=== PATIENT | male | born 1975 | race American Indian/Alaskan Native ===

== ENCOUNTER 2018-08-01 13:35 | Emergency (ER) | payer SELFPAY ==
[2018-08-01] MEDS ORDERED: CATAPRES PO ONE (13:54)
[2018-08-01] MEDS ORDERED: MOTRIN PO ONE (13:54)
--- NOTE | 2018-08-01 13:56 | Emergency Department Report ---
Blank Doc - Documentation Documentation: She was a 43-year-old male whose presenting with left-sided headaches for partly 2 weeks. Patient states this is off and on and he's been taking Excedrin which sometimes helps but is becoming less effective. Patient denies any neck stiffness fevers chills nausea vomiting or light sensitivity. Patient is blood pressure was elevated here in the emergency department but he does not have a history of high blood pressure. Patient also mentioned that today he had an episode where his arms and neck felt tight as though he was having muscle spasms and he was having difficulty moving for approximately a minute. Patient states this was painful thing it wasn't that his body just 1-lead. Patient states he felt as though his muscles were dorian. Patient will have electrolytes drawn including a magnesium. Patient was given 0.2 Catapres for his elevated blood pressure and Motrin for his headache. Patient be reassessed after laboratory studies are reviewed
[2018-08-01 14:44] LABS: BUN/Creatinine Ratio 9; Blood Urea Nitrogen 12 mg/dL (9-20); Calcium 9.9 mg/dL (8.4-10.2); Hemolysis Index 11
--- NOTE | 2018-08-01 15:27 | Emergency Department Report ---
HPI - General Chief Complaint: Headache Time Seen by Provider: 08/01/18 13:51 - HPI HPI: This is a 43-year-old male that was initially screened by Dr. Gonzalez presents to the ED complaining with left-sided headaches for partly 2 weeks. Patient states this is off and on and he's been taking Excedrin which sometimes helps but is becoming less effective. Patient denies any neck stiffness fevers chills nausea vomiting or light sensitivity. Patient is blood pressure was elevated here in the emergency department but he does not have a history of high blood pressure. Patient also mentioned that today he had an episode where his arms and neck felt tight as though he was having muscle spasms and he was having difficulty moving for approximately a minute. Patient states this was painful thing it wasn't that his body just 1-lead. Patient states he felt as though his muscles were dorian. He denies fevers/chills/trauma/any recent injury/loss of sensation/visual disturbances/dizziness or shortness of breath ED Past Medical Hx - Past Medical History Previous Medical History?: No - Surgical History Past Surgical History?: No - Social History Smoking Status: Never Smoker Substance Use Type: None - Medications Home Medications: Home Medications Medication Instructions Recorded Confirmed Last Taken Type Cyclobenzaprine [Flexeril] 10 mg PO QHS PRN #20 tablet 08/01/18 Unknown Rx Ibuprofen [Motrin] 800 mg PO Q8HR #40 tablet 08/01/18 Unknown Rx ED Review of Systems ROS: Stated complaint: HEADACHES Other details as noted in HPI Constitutional: denies: chills, fever Eyes: denies: eye pain, eye discharge, vision change ENT: denies: ear pain, throat pain Respiratory: denies: cough, shortness of breath, wheezing Cardiovascular: denies: chest pain, palpitations Endocrine: no symptoms reported Gastrointestinal: denies: abdominal pain, nausea, vomiting, diarrhea Genitourinary: denies: urgency, dysuria Musculoskeletal: denies: back pain, joint swelling, arthralgia Skin: denies: rash, lesions Neurological: headache. denies: weakness, paresthesias Physical Exam - Physical Exam Vital Signs: Vital Signs 08/01/18 08/01/18 13:39 14:16 Pulse Rate 79 72 Respiratory 16 13 Rate Blood Pressure 156/104 138/90 O2 Sat by Pulse 99 Oximetry Physical Exam: GENERAL: Alert and oriented x3, no apparent distress, Normal Gait, atraumatic. HEAD: Head is normocephalic and a-traumatic. NECK: Supple. Non edematous, No carotid bruits. No lymphadenopathy or thyromegaly. No C-spine tenderness LUNGS: Symetrical with respiration, No wheezing, no rales or crackles, CTAB. HEART: S1, S2 present, regular rate and rhythm without murmur, no rubs, no gallops. Non tender to palpation . EXTREMITIES/MUSCULOSKELETAL: No cyanosis, clubbing, rash, lesions or edema. Full ROM bilaterally. UE/LE Pulses 2+ bilaterally. LE and UE 5+ strength bilaterally, straight leg raise negative bilaterally NEUROLOGIC: The patient is cooperative with no focal neurologic deficits. Cranial nerves II through XII are grossly intact. Normal speech. . SKIN: Warm and dry, No lesions, No ulceration or induration present. ED Course Vital Signs 08/01/18 08/01/18 13:39 14:16 Pulse Rate 79 72 Respiratory 16 13 Rate Blood Pressure 156/104 138/90 O2 Sat by Pulse 99 Oximetry ED Medical Decision Making - Lab Data Result diagrams: 08/01/18 13:57 - Medical Decision Making 43-year-old male presents for a headache/muscle spasm ED course: BMP, magnesium within normal limits no abnormalities I discussed his findings with patient. Blood pressure reduced to 0.1 clonidine I discussed the patient for stress factors that induces headaches. I discussed stiffness in this might be due to muscle spasms Patient was sent home on Motrin and Flexeril Discussed follow-up with primary care physician. Vital signs are normal patient is in no acute distress. Critical care attestation.: If time is entered above; I have spent that time in minutes in the direct care of this critically ill patient, excluding procedure time. ED Disposition Clinical Impression: Myalgia, Muscle spasm Headache Qualifiers: Headache type: tension-type Headache chronicity pattern: acute headache Intractability: not intractable Qualified Code(s): G44.209 - Tension-type headache, unspecified, not intractable Disposition: -01 TO HOME OR SELFCARE Is pt being admited?: No Does the pt Need Aspirin: No Condition: Stable Instructions: Migraine Headache (ED), Tension Headache (ED), Trigger Point Pain (ED), Musculoskeletal Pain (ED) Additional Instructions: Make sure to follow up with the primary care physician as discussed. Take all your medications as you've been prescribed. If you have any worsening symptoms or develop new symptoms please return to ED immediately. Prescriptions: Cyclobenzaprine [Flexeril] 10 mg PO QHS PRN #20 tablet PRN Reason: Muscle Spasm Ibuprofen [Motrin] 800 mg PO Q8HR #40 tablet Referrals: PRIMARY CAREMD [Primary Care Provider] - 3-5 Days MUSA ZACARIAS MD [Staff Physician] - 3-5 Days [facility] [Provider Group] - 3-5 Days Forms: Accompanied Note, Work/School Release Form(ED) Time of Disposition: 15:30
[2018-08-01 15:46] VITALS: BP 140/82
== END 2018-08-01 15:45 | disposition home or self-care (01) ==
LOC: ED 13:35
DX: G44.209 Tension-type headache, unspecified, not intractable (principal); M79.10 Myalgia, unspecified site; M62.838 Other muscle spasm
CPT/HCPCS: 36415; 80048; 83735; 99283